=== PATIENT | female | born 1985 | race Caucasian/White ===

== ENCOUNTER 2016-12-18 20:15 | Inpatient (IN) | payer MEDICAID ==
[~2016-12-18] VITALS: Ht 180.3 cm; Wt 104.9 kg
[2016-12-18] MEDS ORDERED: ALPR0.5T8 PO (20:33)
[2016-12-18 20:56] LABS: BASOPHILS % (AUTO) 0.8 % (0.0-2.0); EOSINOPHILS % (AUTO) 3.1 % (1.0-6.0); HEMATOCRIT 39.4 % (36-46); HEMOGLOBIN 13.3 g/dL (12.0-16.0); LYMPHOCYTES # (AUTO) 1.7 K/uL (1.0-4.8); LYMPHOCYTES % (AUTO) 38.9 % (22.0-44.0); MEAN CORPUSCULAR HEMOGLOBIN 28.7 pg (26.0-34.0); MEAN CORPUSCULAR HGB CONC 33.7 G/dL (31.0-37.0); MEAN CORPUSCULAR VOLUME 85 fL (80-100); MONOCYTES # (AUTO) 0.5 K/uL (0.1-1.0); MONOCYTES % (AUTO) 11.4 % (2.0-9.0); NEUTROPHILS % (AUTO) 45.8 % (40.0-70.0); PLATELET COUNT (AUTO) 390 K/uL (150-450); RED BLOOD CELL COUNT(AUTO) 4.63 MIL/uL (4.00-5.20); RED CELL DISTRIBUTION WIDTH 12.5 % (11.5-14.5); WHITE BLOOD COUNT (AUTO) 4.4 K/uL (4.5-11.0)
[2016-12-18 21:12] LABS: ANION GAP 10 mmol/L (8-16); CALCIUM, TOTAL 8.4 mg/dL (8.8-10.5); CARBON DIOXIDE 24 mmol/L (22-29); CHLORIDE 108 mmol/L (98-107); CREATININE 0.94 mg/dL (0.60-1.30); GLOMERULAR FILTR. RATE CALC > 60 mL/min (>60); POTASSIUM 3.9 mmol/L (3.5-5.1); SODIUM SERUM 142 mmol/L (136-145); UREA NITROGEN, BLOOD 14 mg/dL (7-18)
[2016-12-18 21:18] LABS: ALANINE AMINOTRANSFERASE 123 U/L (12-78); ALBUMIN 3.9 g/dL (3.4-5.0); ASPARTATE AMINOTRANSFERASE 69 U/L (15-37); BILIRUBIN,TOTAL 0.1 mg/dL (0.1-1.0); TOTAL PROTEIN, SERUM 7.9 g/dL (6.4-8.2)
[2016-12-19 01:24] LABS: APPEARANCE,URINE CLEAR (CLEAR); GLUCOSE, URINE (UA) NEGATIVE (NEGATIVE); KETONES,URINE NEGATIVE (NEGATIVE); LEUKOCYTE ESTERASE ,URINE NEGATIVE (NEGATIVE); OCCULT BLOOD,URINE MODERATE (NEGATIVE); PROTEIN,URINE NEGATIVE (NEGATIVE)
[2016-12-19 01:30] LABS: ADD UA MICROSCOPIC YES
[2016-12-19 02:12] LABS: SQUAMOUS EPITHELIAL CELL,UR Few /LPF (None Seen); WBC,URINE 0-2 /HPF (0-5)
[2016-12-19] MEDS: LORazepam 2 MG TABLET PO PRN ×3 (02:40→15:56)
[2016-12-19 02:50] LABS: CHOL/HDL RATIO 4.1 (3.9-5.7); THYROID STIMULATING HORMONE 1.99 uIU/mL (0.36-3.74)
[2016-12-19] MEDS: ZOLPIDEM TARTRATE 10 MG TABLET PO PRN (03:00)
[2016-12-19 03:10] VITALS: BP 140/104
[2016-12-19] MEDS ORDERED: INFLUENZA VIRUS VACCINE QVS 2017-18 (3YR+)/PF 60 MCG/0.5 ML SYRINGE IM ONE (04:30)
[2016-12-19] MEDS: NICOTINE 14 MG/24 HOUR PATCH TD SCH (09:34)
[2016-12-19] MEDS: SERTRALINE HCL 50 MG TABLET PO SCH (10:40)
[2016-12-19] MEDS: HALOPERIDOL 5 MG TABLET PO PRN ×2 (10:41→15:56)
[2016-12-20] MEDS ORDERED: DOCUSATE SODIUM 100 MG CAPSULE PO PRN (07:45)
[2016-12-20] MEDS ORDERED: IBUPROFEN 400 MG TABLET PO PRN (07:45)
[2016-12-20] MEDS ORDERED: ACETAMINOPHEN 325 MG TABLET PO PRN (07:45)
[2016-12-20 08:38] VITALS: BP 144/90
[2016-12-20] MEDS ORDERED: NUVA RING MISC SCH (09:00)
[2016-12-20] MEDS: LORazepam 2 MG TABLET PO PRN ×3 (09:04→20:09)
[2016-12-20] MEDS: SERTRALINE HCL 50 MG TABLET PO SCH (09:04)
[2016-12-20] MEDS: NICOTINE 14 MG/24 HOUR PATCH TD SCH (09:06)
[2016-12-20 16:29] VITALS: BP 131/90
[2016-12-20] MEDS ORDERED: NON FORMULARY MEDICATION - MISC UNIT MISC SCH (21:45)
[2016-12-20] MEDS: ZOLPIDEM TARTRATE 10 MG TABLET PO PRN (22:22)
[2016-12-21 06:07] VITALS: BP 135/80
[2016-12-21] MEDS ORDERED: SERT50TA12 PO (08:31)
[2016-12-21 09:07] VITALS: BP 131/88
[2016-12-21] MEDS: LORazepam 2 MG TABLET PO PRN (09:23)
[2016-12-21] MEDS: HALOPERIDOL 5 MG TABLET PO PRN (09:23)
[2016-12-21] MEDS: SERTRALINE HCL 50 MG TABLET PO SCH (09:24)
[2016-12-21] MEDS: NICOTINE 14 MG/24 HOUR PATCH TD SCH (09:24)
== END 2016-12-21 12:10 | disposition home or self-care (01) | DRG 751 ==
LOC: EMS 20:17 → 3EI 12-19 01:13
DX: F33.2 Major depressive disorder, recurrent severe without psychotic features (principal); E78.5 Hyperlipidemia, unspecified; F10.10 Alcohol abuse, uncomplicated; F17.210 Nicotine dependence, cigarettes, uncomplicated; Z81.8 Family history of other mental and behavioral disorders; Z91.5 Personal history of self-harm; Z71.6 Tobacco abuse counseling; Z71.41 Alcohol abuse counseling and surveillance of alcoholic; Z79.899 Other long term (current) drug therapy; Z28.21 Immunization not carried out because of patient refusal
CPT/HCPCS: 84443; 99285; G0480

== ENCOUNTER 2017-02-08 17:13 | Inpatient (IN) | payer MEDICAID, OTHER ==
[~2017-02-08] VITALS: Ht 180.3 cm; Wt 105.9 kg
[~2017-02-08 17:13] MED LIST: SERT50TA12 PO
[2017-02-08] MEDS ORDERED: SODIUM CHLORIDE 0.9% 1,000 ML IV ONE (17:30)
[2017-02-08 17:52] LABS: BASOPHILS % (AUTO) 0.9 % (0.0-2.0); EOSINOPHILS % (AUTO) 1.9 % (1.0-6.0); HEMATOCRIT 42.1 % (36-46); HEMOGLOBIN 14.2 g/dL (12.0-16.0); LYMPHOCYTES # (AUTO) 2.3 K/uL (1.0-4.8); LYMPHOCYTES % (AUTO) 34.7 % (22.0-44.0); MEAN CORPUSCULAR HEMOGLOBIN 28.8 pg (26.0-34.0); MEAN CORPUSCULAR HGB CONC 33.8 G/dL (31.0-37.0); MEAN CORPUSCULAR VOLUME 85 fL (80-100); MONOCYTES # (AUTO) 0.7 K/uL (0.1-1.0); MONOCYTES % (AUTO) 10.1 % (2.0-9.0); NEUTROPHILS # (AUTO) 3.5 K/uL (1.8-7.7); NEUTROPHILS % (AUTO) 52.4 % (40.0-70.0); PLATELET COUNT (AUTO) 325 K/uL (150-450); RED BLOOD CELL COUNT(AUTO) 4.95 MIL/uL (4.00-5.20); RED CELL DISTRIBUTION WIDTH 13.5 % (11.5-14.5); WHITE BLOOD COUNT (AUTO) 6.6 K/uL (4.5-11.0)
[2017-02-08 18:08] LABS: ANION GAP 12 mmol/L (8-16); CALCIUM, TOTAL 8.4 mg/dL (8.8-10.5); CARBON DIOXIDE 23 mmol/L (22-29); CHLORIDE 106 mmol/L (98-107); CREATININE 0.82 mg/dL (0.60-1.30); GLOMERULAR FILTR. RATE CALC > 60 mL/min (>60); POTASSIUM 3.7 mmol/L (3.5-5.1); SODIUM SERUM 141 mmol/L (136-145); UREA NITROGEN, BLOOD 11 mg/dL (7-18)
[2017-02-08 18:20] LABS: ALANINE AMINOTRANSFERASE 128 U/L (12-78); ALBUMIN 3.9 g/dL (3.4-5.0); BILIRUBIN,TOTAL 0.2 mg/dL (0.1-1.0); TOTAL PROTEIN, SERUM 8.1 g/dL (6.4-8.2)
[2017-02-08 18:33] LABS: ASPARTATE AMINOTRANSFERASE 66 U/L (15-37)
[2017-02-08 18:34] LABS: ACETAMINOPHEN < 3 mcg/mL (10-30)
[2017-02-08 18:36] LABS: SALICYLATE < 2.8 mg/dL (2.8-20.0)
[2017-02-08] MEDS ORDERED: ONDANSETRON HCL 4 MG/2 ML VIAL IVP ONE (19:45)
[2017-02-08 21:21] LABS: ANION GAP 7 mmol/L (8-16); CARBON DIOXIDE 26 mmol/L (22-29); CHLORIDE 108 mmol/L (98-107); CREATININE 0.83 mg/dL (0.60-1.30); GLOMERULAR FILTR. RATE CALC > 60 mL/min (>60); POTASSIUM 4.9 mmol/L (3.5-5.1); SODIUM SERUM 141 mmol/L (136-145); UREA NITROGEN, BLOOD 11 mg/dL (7-18)
[2017-02-08 21:28] LABS: ALANINE AMINOTRANSFERASE 114 U/L (12-78); ASPARTATE AMINOTRANSFERASE 57 U/L (15-37); BILIRUBIN,TOTAL 0.2 mg/dL (0.1-1.0); TOTAL PROTEIN, SERUM 7.2 g/dL (6.4-8.2)
[2017-02-08 21:45] LABS: SALICYLATE < 2.8 mg/dL (2.8-20.0)
[2017-02-08 22:01] LABS: ACETAMINOPHEN < 3 mcg/mL (10-30)
[2017-02-08 22:07] LABS: ALBUMIN 3.5 g/dL (3.4-5.0)
[2017-02-09] VITALS (11 sets, daily range): BP systolic 127–150; BP diastolic 76–106
[2017-02-09] MEDS ORDERED: LORazepam 2 MG TABLET PO PRN (00:30)
[2017-02-09] MEDS ORDERED: LOPERAMIDE HCL 2 MG CAPSULE PO PRN (00:30)
[2017-02-09] MEDS ORDERED: CYANOCOBALAMIN 1,000 MCG/ML VIAL IM ONE (00:30)
[2017-02-09] MEDS ORDERED: GuaiFENesin/D-METHORPHAN [SUGAR-FREE] 200-20MG/10 ML SYRUP UDCUP PO PRN (00:30)
[2017-02-09] MEDS ORDERED: HydrOXYzine PAMOATE 50 MG CAPSULE PO PRN (00:30)
[2017-02-09] MEDS ORDERED: HALOPERIDOL 5 MG TABLET PO PRN (00:30)
[2017-02-09] MEDS ORDERED: ZOLPIDEM TARTRATE 10 MG TABLET PO PRN (00:30)
[2017-02-09] MEDS ORDERED: INFLUENZA VIRUS VACCINE QVS 2017-18 (3YR+)/PF 60 MCG/0.5 ML SYRINGE IM ONE (05:30)
[2017-02-09] MEDS: FOLIC ACID 1 MG TABLET PO SCH (09:23)
[2017-02-09] MEDS: MULTIVITAMINS WITH MINERALS, THERAPEUTIC TABLET PO SCH (09:23)
[2017-02-09] MEDS: THIAMINE HCL 100 MG TABLET PO SCH ×2 (09:23→16:18)
[2017-02-09] MEDS: LORazepam 2 MG TABLET PO PRN ×2 (09:29→16:18)
[2017-02-09] MEDS: MIRTAZAPINE 15 MG TABLET PO SCH (20:21)
[2017-02-10] VITALS (7 sets, daily range): BP systolic 115–140; BP diastolic 72–98
[2017-02-10] MEDS ORDERED: LORazepam 2 MG TABLET PO PRN (07:00)
[2017-02-10] MEDS: THIAMINE HCL 100 MG TABLET PO SCH ×2 (08:28→16:27)
[2017-02-10] MEDS: MULTIVITAMINS WITH MINERALS, THERAPEUTIC TABLET PO SCH (08:28)
[2017-02-10] MEDS: FOLIC ACID 1 MG TABLET PO SCH (08:28)
[2017-02-10] MEDS: LORazepam 2 MG TABLET PO SCH ×4 (08:28→20:22)
[2017-02-10 09:24] LABS: CHOL/HDL RATIO 3.9 (3.9-5.7)
[2017-02-10] MEDS: MIRTAZAPINE 15 MG TABLET PO SCH (20:22)
[2017-02-11 01:35] VITALS: BP 134/84
[2017-02-11 06:23] VITALS: BP 120/82
[2017-02-11] MEDS: MULTIVITAMINS WITH MINERALS, THERAPEUTIC TABLET PO SCH (08:06)
[2017-02-11] MEDS: THIAMINE HCL 100 MG TABLET PO SCH (08:06)
[2017-02-11] MEDS: FOLIC ACID 1 MG TABLET PO SCH (08:06)
[2017-02-11] MEDS: LORazepam 2 MG TABLET PO SCH ×2 (08:06→13:15)
[2017-02-11 08:58] VITALS: BP 134/89
[2017-02-11 12:11] LABS: HEPATITIS Bs ANTIGEN SCREEN P Negative (Negative); HEPATITIS C AB SCREEN 0.2 s/co ratio (0.0-0.9)
[2017-02-11] MEDS ORDERED: MIRT15 PO (12:15)
[2017-02-12] MEDS ORDERED: LORazepam 1 MG TABLET PO PRN (07:00)
[2017-02-12] MEDS ORDERED: LORazepam 1 MG TABLET PO SCH (09:00)
[2017-02-13] MEDS ORDERED: LORazepam 1 MG TABLET PO PRN (07:00)
== END 2017-02-11 13:30 | disposition home or self-care (01) | DRG 754 ==
LOC: EMS 17:16 → B3A 02-09 01:19
PROVIDERS: ADMIT Psychiatry & Neurology Child & Adolescent Psychiatry; ATTEND Psychiatry & Neurology Child & Adolescent Psychiatry
DX: F32.9 Major depressive disorder, single episode, unspecified (principal); R45.851 Suicidal ideations; I10 Essential (primary) hypertension; F12.10 Cannabis abuse, uncomplicated; F19.10 Other psychoactive substance abuse, uncomplicated; F10.129 Alcohol abuse with intoxication, unspecified; F13.10 Sedative, hypnotic or anxiolytic abuse, uncomplicated; Y90.8 Blood alcohol level of 240 mg/100 ml or more; Z71.41 Alcohol abuse counseling and surveillance of alcoholic; Z79.899 Other long term (current) drug therapy
CPT/HCPCS: 80074; 93005; 96361; 96374; 99285; G0480; G0481; J2405; J3420; J7030

== ENCOUNTER 2017-05-03 16:42 | Inpatient (IN) | payer MEDICAID ==
[~2017-05-03] VITALS: Ht 175.3 cm; Wt 106.2 kg
[~2017-05-03 16:42] MED LIST changes: +MIRT15 PO; -SERT50TA12 PO
[2017-05-03 17:36] LABS: BASOPHILS % (AUTO) 0.9 % (0.0-2.0); EOSINOPHILS % (AUTO) 1.5 % (1.0-6.0); HEMATOCRIT 47.2 % (36-46); HEMOGLOBIN 15.9 g/dL (12.0-16.0); LYMPHOCYTES # (AUTO) 2.9 K/uL (1.0-4.8); LYMPHOCYTES % (AUTO) 36.6 % (22.0-44.0); MEAN CORPUSCULAR HEMOGLOBIN 28.5 pg (26.0-34.0); MEAN CORPUSCULAR HGB CONC 33.7 G/dL (31.0-37.0); MEAN CORPUSCULAR VOLUME 84 fL (80-100); MONOCYTES # (AUTO) 0.8 K/uL (0.1-1.0); MONOCYTES % (AUTO) 9.7 % (2.0-9.0); NEUTROPHILS # (AUTO) 4.1 K/uL (1.8-7.7); NEUTROPHILS % (AUTO) 51.3 % (40.0-70.0); PLATELET COUNT (AUTO) 313 K/uL (150-450); RED BLOOD CELL COUNT(AUTO) 5.59 MIL/uL (4.00-5.20); RED CELL DISTRIBUTION WIDTH 13.2 % (11.5-14.5)
[2017-05-03 17:38] LABS: ANION GAP 12 mmol/L (8-16); CALCIUM, TOTAL 8.6 mg/dL (8.8-10.5); CARBON DIOXIDE 23 mmol/L (22-29); CHLORIDE 107 mmol/L (98-107); CREATININE 0.78 mg/dL (0.60-1.30); GLOMERULAR FILTR. RATE CALC > 60 mL/min (>60); GLUCOSE,RANDOM 101 mg/dL (70-110); POTASSIUM 3.9 mmol/L (3.5-5.1); SODIUM SERUM 142 mmol/L (136-145); UREA NITROGEN, BLOOD 13 mg/dL (7-18)
[2017-05-03 17:40] LABS: SALICYLATE < 2.8 mg/dL (2.8-20.0)
[2017-05-03 17:43] LABS: ALANINE AMINOTRANSFERASE 128 U/L (12-78); ALKALINE PHOSPHATASE 83 U/L (46-116); ASPARTATE AMINOTRANSFERASE 83 U/L (15-37); BILIRUBIN,TOTAL 0.1 mg/dL (0.1-1.0); LIPASE 155 U/L (73-393); TOTAL PROTEIN, SERUM 8.7 g/dL (6.4-8.2)
[2017-05-03 18:15] LABS: ACETAMINOPHEN < 2 mcg/mL (10-30)
[2017-05-03] MEDS ORDERED: ONDANSETRON HCL 4 MG/2 ML VIAL IVP ONE (20:30)
[2017-05-03] MEDS ORDERED: SODIUM CHLORIDE 0.9% 1,000 ML IV ONE (20:30)
[2017-05-03] MEDS ORDERED: MAGNESIUM HYDROXIDE SUSPENSION 30 ML UDCUP PO PRN (21:45)
[2017-05-03] MEDS ORDERED: ONDANSETRON HCL 4 MG/2 ML VIAL IVP PRN (21:45)
[2017-05-03 22:47] VITALS: BP 147/96
[2017-05-03] MEDS: PANTOPRAZOLE SODIUM 40 MG/VIAL IVP SCH (22:47)
[2017-05-03] MEDS: SODIUM CHLORIDE 0.9% 1,000 ML IV SCH (22:47)
[2017-05-03] MEDS ORDERED: INFLUENZA VIRUS VACCINE QVS 2017-18 (3YR+)/PF 60 MCG/0.5 ML SYRINGE IM ONE (23:45)
[2017-05-04 04:10] VITALS: BP 155/91
[2017-05-04 05:41] LABS: APPEARANCE,URINE CLEAR (CLEAR); BILIRUBIN,URINE NEGATIVE (NEGATIVE); GLUCOSE, URINE (UA) NEGATIVE (NEGATIVE); KETONES,URINE NEGATIVE (NEGATIVE); LEUKOCYTE ESTERASE ,URINE NEGATIVE (NEGATIVE); NITRATE,URINE NEGATIVE (NEGATIVE); OCCULT BLOOD,URINE NEGATIVE (NEGATIVE); PROTEIN,URINE NEGATIVE (NEGATIVE); UROBILINOGEN,URINE 0.2 mg/dL (<=1.0)
[2017-05-04 05:51] LABS: AMPHET/METH SCREEN,URINE NEGATIVE (NEGATIVE); BARBITURATE SCREEN, URINE NEGATIVE (NEGATIVE); BENZODIAZEPINES SCREEN,URINE POSITIVE (NEGATIVE); CANNABINOID SCREEN,URINE POSITIVE (NEGATIVE); COCAINE SCREEN,URINE NEGATIVE (NEGATIVE); METHADONE SCREEN, URINE NEGATIVE (NEGATIVE); OPIATE SCREEN,URINE NEGATIVE (NEGATIVE)
[2017-05-04 05:52] LABS: PHENCYCLIDINE SCREEN,URINE NEGATIVE (NEGATIVE)
[2017-05-04 06:18] LABS: BACTERIA,URINE Few /HPF (None Seen); MUCUS,URINE Few LPF (None Seen); RBC,URINE 0-2 /HPF (0-2); SQUAMOUS EPITHELIAL CELL,UR Few /LPF (None Seen); WBC,URINE 0-2 /HPF (0-5)
[2017-05-04 06:46] LABS: BASOPHILS % (AUTO) 0.5 % (0.0-2.0); EOSINOPHILS % (AUTO) 0.5 % (1.0-6.0); HEMATOCRIT 40.9 % (36-46); HEMOGLOBIN 13.4 g/dL (12.0-16.0); LYMPHOCYTES # (AUTO) 1.9 K/uL (1.0-4.8); LYMPHOCYTES % (AUTO) 18.8 % (22.0-44.0); MEAN CORPUSCULAR HEMOGLOBIN 28.1 pg (26.0-34.0); MEAN CORPUSCULAR HGB CONC 32.9 G/dL (31.0-37.0); MEAN CORPUSCULAR VOLUME 86 fL (80-100); MONOCYTES # (AUTO) 0.9 K/uL (0.1-1.0); MONOCYTES % (AUTO) 9.2 % (2.0-9.0); PLATELET COUNT (AUTO) 236 K/uL (150-450); RED BLOOD CELL COUNT(AUTO) 4.78 MIL/uL (4.00-5.20); RED CELL DISTRIBUTION WIDTH 13.6 % (11.5-14.5)
[2017-05-04 06:56] LABS: ALANINE AMINOTRANSFERASE 95 U/L (12-78); ALBUMIN 3.4 g/dL (3.4-5.0); ALKALINE PHOSPHATASE 65 U/L (46-116); ANION GAP 13 mmol/L (8-16); ASPARTATE AMINOTRANSFERASE 53 U/L (15-37); BILIRUBIN,TOTAL 0.3 mg/dL (0.1-1.0); CALCIUM, TOTAL 7.7 mg/dL (8.8-10.5); CARBON DIOXIDE 21 mmol/L (22-29); CHLORIDE 106 mmol/L (98-107); CREATININE 0.68 mg/dL (0.60-1.30); GLOMERULAR FILTR. RATE CALC > 60 mL/min (>60); GLUCOSE,RANDOM 81 mg/dL (70-110); POTASSIUM 3.7 mmol/L (3.5-5.1); SODIUM SERUM 140 mmol/L (136-145); TOTAL PROTEIN, SERUM 7.2 g/dL (6.4-8.2); UREA NITROGEN, BLOOD 9 mg/dL (7-18)
[2017-05-04 07:25] VITALS: BP 150/101
[2017-05-04] MEDS: SODIUM CHLORIDE 0.9% 1,000 ML IV SCH ×2 (08:48→19:50)
[2017-05-04] MEDS: PANTOPRAZOLE SODIUM 40 MG/VIAL IVP SCH ×2 (08:48→20:48)
[2017-05-04] MEDS: DOCUSATE SODIUM 100 MG CAPSULE PO SCH ×2 (08:49→20:48)
[2017-05-04 11:25] VITALS: BP 147/92
[2017-05-04] MEDS ORDERED: DIAZEPAM 5 MG TABLET PO PRN (14:15)
[2017-05-04] MEDS ORDERED: CYANOCOBALAMIN 1,000 MCG/ML VIAL IM ONE (14:15)
[2017-05-04] MEDS: FOLIC ACID 1 MG TABLET PO SCH (14:44)
[2017-05-04] MEDS: MULTIVITAMINS WITH MINERALS, THERAPEUTIC TABLET PO SCH (14:45)
[2017-05-04] MEDS: SERTRALINE HCL 100 MG TABLET PO SCH (14:45)
[2017-05-04] MEDS: THIAMINE HCL 100 MG TABLET PO SCH ×2 (14:48→20:48)
[2017-05-04 15:40] VITALS: BP 142/94
[2017-05-04 20:40] VITALS: BP 158/98
[2017-05-04 23:25] VITALS: BP 154/96
[2017-05-04] MEDS: AmLODIPine BESYLATE 5 MG TABLET PO SCH (23:25)
[2017-05-05] MEDS ORDERED: SODIUM CHLORIDE 0.9% 1,000 ML IV ONE (05:51)
[2017-05-05] MEDS: SODIUM CHLORIDE 0.9% 1,000 ML IV SCH (05:54)
[2017-05-05 06:11] VITALS: BP 154/109
[2017-05-05] MEDS ORDERED: DIAZEPAM 5 MG TABLET PO PRN (07:00)
[2017-05-05] MEDS: PANTOPRAZOLE SODIUM 40 MG/VIAL IVP SCH (08:04)
[2017-05-05] MEDS: DOCUSATE SODIUM 100 MG CAPSULE PO SCH ×2 (08:04→20:08)
[2017-05-05] MEDS: MULTIVITAMINS WITH MINERALS, THERAPEUTIC TABLET PO SCH (08:05)
[2017-05-05] MEDS: AmLODIPine BESYLATE 5 MG TABLET PO SCH (08:05)
[2017-05-05] MEDS: FOLIC ACID 1 MG TABLET PO SCH (08:05)
[2017-05-05] MEDS: THIAMINE HCL 100 MG TABLET PO SCH ×2 (08:05→20:09)
[2017-05-05] MEDS: DIAZEPAM 5 MG TABLET PO SCH ×4 (08:05→20:08)
[2017-05-05] MEDS: SERTRALINE HCL 100 MG TABLET PO SCH (08:07)
[2017-05-05 08:14] VITALS: BP 156/103
[2017-05-05 11:59] VITALS: BP 155/93
[2017-05-05 15:59] VITALS: BP 158/107
[2017-05-05] MEDS: ACETAMINOPHEN 325 MG TABLET PO PRN ×2 (17:11→22:59)
[2017-05-05 20:10] VITALS: BP 148/95
[2017-05-06 00:28] VITALS: BP 151/93
[2017-05-06 04:10] VITALS: BP 148/93
[2017-05-06] MEDS: ACETAMINOPHEN 325 MG TABLET PO PRN ×3 (04:19→14:05)
[2017-05-06 08:00] VITALS: BP 145/88
[2017-05-06] MEDS ORDERED: PANTOPRAZOLE SODIUM 40 MG DR TABLET PO SCH (09:00)
[2017-05-06] MEDS: THIAMINE HCL 100 MG TABLET PO SCH (09:15)
[2017-05-06] MEDS: DOCUSATE SODIUM 100 MG CAPSULE PO SCH (09:15)
[2017-05-06] MEDS: AmLODIPine BESYLATE 5 MG TABLET PO SCH (09:15)
[2017-05-06] MEDS: DIAZEPAM 5 MG TABLET PO SCH (09:16)
[2017-05-06] MEDS: MULTIVITAMINS WITH MINERALS, THERAPEUTIC TABLET PO SCH (09:16)
[2017-05-06] MEDS: SERTRALINE HCL 100 MG TABLET PO SCH (09:16)
[2017-05-06] MEDS: FOLIC ACID 1 MG TABLET PO SCH (09:16)
[2017-05-06 11:36] VITALS: BP 142/92
[2017-05-06 16:11] VITALS: BP 149/99
[2017-05-07] MEDS ORDERED: DIAZEPAM 5 MG TABLET PO PRN (07:00)
[2017-05-07] MEDS ORDERED: DIAZEPAM 5 MG TABLET PO SCH (09:00)
[2017-05-08] MEDS ORDERED: DIAZEPAM 5 MG TABLET PO PRN (07:00)
== END 2017-05-06 17:15 | DRG 751 ==
LOC: EMS 16:43 → 6N 20:58
PROVIDERS: ADMIT Internal Medicine; ATTEND Internal Medicine
DX: F33.2 Major depressive disorder, recurrent severe without psychotic features (principal); E66.9 Obesity, unspecified; F10.229 Alcohol dependence with intoxication, unspecified; T14.91XD Suicide attempt, subsequent encounter; F17.200 Nicotine dependence, unspecified, uncomplicated; F12.10 Cannabis abuse, uncomplicated
CPT/HCPCS: 87081; 96361; 96374; 99285; C9113; G0480; G0481; J2405; J3420; J7030

== ENCOUNTER 2017-05-06 17:15 | Inpatient (IN) | payer MEDICAID ==
[~2017-05-06] VITALS: Ht 180.3 cm; Wt 104.6 kg
[~2017-05-06 17:15] MED LIST changes: +SERT100T12 PO
[2017-05-06 18:00] VITALS: BP 135/82
[2017-05-06] MEDS ORDERED: HALOPERIDOL 5 MG TABLET PO PRN (19:00)
[2017-05-06] MEDS ORDERED: INFLUENZA VIRUS VACCINE QVS 2017-18 (3YR+)/PF 60 MCG/0.5 ML SYRINGE IM ONE (19:45)
[2017-05-06] MEDS: ZOLPIDEM TARTRATE 10 MG TABLET PO PRN (21:10)
[2017-05-06] MEDS: ACETAMINOPHEN 325 MG TABLET PO PRN (21:10)
[2017-05-07 03:05] VITALS: BP 155/105
[2017-05-07] MEDS: LORazepam 2 MG TABLET PO PRN ×3 (03:10→20:28)
[2017-05-07] MEDS: ACETAMINOPHEN 325 MG TABLET PO PRN ×3 (03:10→14:05)
[2017-05-07] MEDS: MULTIVITAMINS WITH MINERALS, THERAPEUTIC TABLET PO SCH (09:04)
[2017-05-07] MEDS: SERTRALINE HCL 100 MG TABLET PO SCH (09:04)
[2017-05-07] MEDS: AmLODIPine BESYLATE 5 MG TABLET PO SCH (09:04)
[2017-05-07] MEDS: PANTOPRAZOLE SODIUM 40 MG DR TABLET PO SCH (09:04)
[2017-05-07 09:05] VITALS: BP 146/95
[2017-05-07] MEDS: FOLIC ACID 1 MG TABLET PO SCH (09:05)
[2017-05-07] MEDS: DOCUSATE SODIUM 100 MG CAPSULE PO SCH ×2 (09:05→17:50)
[2017-05-07] MEDS: THIAMINE HCL 100 MG TABLET PO SCH ×2 (09:05→17:50)
[2017-05-07] MEDS ORDERED: AZITHROMYCIN 250 MG TABLET PO ONE (11:15)
[2017-05-07] MEDS ORDERED: CloNIDine HCL 0.1 MG TABLET PO PRN (11:15)
[2017-05-07] MEDS: DISULFIRAM 250 MG TABLET PO SCH (11:57)
[2017-05-07] MEDS: BuPROPion HCL 150 MG SR TABLET PO SCH (11:57)
[2017-05-07 14:00] VITALS: BP 145/95
[2017-05-07 19:19] VITALS: BP 136/81
[2017-05-07] MEDS: ZOLPIDEM TARTRATE 10 MG TABLET PO PRN (21:33)
[2017-05-08] MEDS: ACETAMINOPHEN 325 MG TABLET PO PRN ×3 (02:20→14:03)
[2017-05-08] MEDS: LORazepam 2 MG TABLET PO PRN ×2 (02:20→08:02)
[2017-05-08 02:25] VITALS: BP 140/88
[2017-05-08 08:00] VITALS: BP 136/87
[2017-05-08] MEDS: MULTIVITAMINS WITH MINERALS, THERAPEUTIC TABLET PO SCH (08:02)
[2017-05-08] MEDS: PANTOPRAZOLE SODIUM 40 MG DR TABLET PO SCH (08:02)
[2017-05-08] MEDS: DOCUSATE SODIUM 100 MG CAPSULE PO SCH (08:02)
[2017-05-08] MEDS: AZITHROMYCIN 250 MG TABLET PO SCH (08:02)
[2017-05-08] MEDS: AmLODIPine BESYLATE 5 MG TABLET PO SCH (08:02)
[2017-05-08] MEDS: THIAMINE HCL 100 MG TABLET PO SCH ×2 (08:02→17:22)
[2017-05-08] MEDS: FOLIC ACID 1 MG TABLET PO SCH (08:03)
[2017-05-08] MEDS: DISULFIRAM 250 MG TABLET PO SCH (08:04)
[2017-05-08] MEDS: BuPROPion HCL 150 MG SR TABLET PO SCH (08:04)
[2017-05-08] MEDS: SERTRALINE HCL 100 MG TABLET PO SCH (08:04)
[2017-05-08] MEDS ORDERED: LORATADINE 10 MG TABLET PO PRN (08:15)
[2017-05-08 09:32] VITALS: BP 136/87
[2017-05-08] MEDS ORDERED: LOPERAMIDE HCL 2 MG CAPSULE PO PRN (14:00)
[2017-05-08 18:29] VITALS: BP 121/77
[2017-05-08] MEDS: ZOLPIDEM TARTRATE 10 MG TABLET PO PRN (20:45)
[2017-05-09 08:51] VITALS: BP 127/84
[2017-05-09] MEDS: MULTIVITAMINS WITH MINERALS, THERAPEUTIC TABLET PO SCH (08:53)
[2017-05-09] MEDS: ACETAMINOPHEN 325 MG TABLET PO PRN (08:53)
[2017-05-09] MEDS: AmLODIPine BESYLATE 5 MG TABLET PO SCH (08:53)
[2017-05-09] MEDS: FOLIC ACID 1 MG TABLET PO SCH (08:54)
[2017-05-09] MEDS: THIAMINE HCL 100 MG TABLET PO SCH ×2 (08:54→16:24)
[2017-05-09] MEDS: PANTOPRAZOLE SODIUM 40 MG DR TABLET PO SCH (08:54)
[2017-05-09] MEDS: SERTRALINE HCL 100 MG TABLET PO SCH (08:54)
[2017-05-09] MEDS: AZITHROMYCIN 250 MG TABLET PO SCH (08:54)
[2017-05-09] MEDS: DISULFIRAM 250 MG TABLET PO SCH (08:54)
[2017-05-09] MEDS ORDERED: BuPROPion HCL 100 MG SR TABLET PO SCH (09:00)
[2017-05-09] MEDS: LORazepam 2 MG TABLET PO PRN (13:31)
[2017-05-09] MEDS ORDERED: DISU250 PO (13:54)
[2017-05-09] MEDS ORDERED: SERT100T12 PO (13:54)
[2017-05-09] MEDS ORDERED: BUPR100SR PO (13:54)
[2017-05-09] MEDS ORDERED: FOLI1 PO (13:59)
[2017-05-09] MEDS ORDERED: AZIT250T9 PO (13:59)
[2017-05-09] MEDS ORDERED: AMLO-511 PO (13:59)
[2017-05-09] MEDS ORDERED: MV-M1TAB2 PO (14:00)
[2017-05-09] MEDS ORDERED: PANT40TA25 PO (14:00)
[2017-05-09] MEDS ORDERED: THIA100 PO (14:00)
== END 2017-05-09 16:30 | disposition home or self-care (01) | DRG 751 ==
LOC: 3EI 17:15
PROVIDERS: ADMIT Psychiatry & Neurology Child & Adolescent Psychiatry; ATTEND Psychiatry & Neurology Child & Adolescent Psychiatry
DX: F32.2 Major depressive disorder, single episode, severe without psychotic features (principal); R64 Cachexia; I10 Essential (primary) hypertension; F12.90 Cannabis use, unspecified, uncomplicated; J06.9 Acute upper respiratory infection, unspecified; F41.9 Anxiety disorder, unspecified; R79.89 Other specified abnormal findings of blood chemistry; J32.9 Chronic sinusitis, unspecified; Z68.32 Body mass index [BMI] 32.0-32.9, adult
CPT/HCPCS: 87081